=== PATIENT | male | born 2000 | race Caucasian/White ===

== ENCOUNTER 2024-06-06 14:19 | Emergency (ER) | payer OTHER ==
[2024-06-06] MEDS: Lidocaine 1% with EPINEPHrine 1:100,000 20 ML MDV SUBCUT ONE (15:38)
== END 2024-06-06 15:50 | disposition home or self-care (01) ==
LOC: FB.ED 14:19
DX: S06.0X0A Concussion without loss of consciousness, initial encounter (principal); S01.01XA Laceration without foreign body of scalp, initial encounter; F17.210 Nicotine dependence, cigarettes, uncomplicated; W01.0XXA Fall on same level from slipping, tripping and stumbling without subsequent striking against object, initial encounter
CPT/HCPCS: 12002; 70450; 99283

== ENCOUNTER 2025-06-07 17:45 | Emergency (ER) | payer SELFPAY ==
[2025-06-07] MEDS: SUMAtriptan 6 MG/0.5 ML SDV SUBCUT ONE (18:35)
[2025-06-07 18:41] LABS: BASOPHILS ABSOLUTE AUTO 0.1 x10-3/uL (0.0-0.3); BASOPHILS PERCENT AUTO 0.8 % (0.3-3.8); BLOOD UREA NITROGEN,BUN 10 mg/dL (7-18); CARBON DIOXIDE,CO2 27 mmol/L (21-32); CHLORIDE,CL 105 mmol/L (100-110); CREATININE 1.2 mg/dL (0.70-1.30); EOSINOPHILS ABSOLUTE AUTO 0.2 x10-3/uL (0.0-0.6); EOSINOPHILS PERCENT AUTO 2.7 % (0.1-6.8); ESTIMATED GFR 87 mL/min (>60); GLUCOSE RANDOM 96 mg/dL (80-116); LYMPHOCYTES ABSOLUTE AUTO 3.0 x10-3/uL (0.5-4.5); LYMPHOCYTES PERCENT AUTO 35.1 % (15.8-45.3); MEAN PLATELET VOLUME 8.5 fL (6.7-11.0); MONOCYTES ABSOLUTE AUTO 0.8 x10-3/uL (0.0-1.2); MONOCYTES PERCENT AUTO 9.1 % (5.5-15.2); NEUTROPHILS ABSOLUTE AUTO 4.5 x10-3/uL (1.7-6.9); NEUTROPHILS PERCENT AUTO 52.3 % (40.3-71.8); PLATELET COUNT,PLT 242 x10(3)uL (117-477); POTASSIUM,K 3.5 mmol/L (3.5-5.3); RED BLOOD CELL COUNT 5.32 x10(6)uL (3.90-5.90); RED CELL DISTRIBUTION WIDTH 13.4 % (12.4-15.0); SODIUM,NA 141 mmol/L (135-145); WHITE BLOOD CELL COUNT,WBC 8.7 x10-3/uL (3.2-10.1)
[2025-06-07 18:47] LABS: A/G RATIO 1.5; ALANINE AMINOTRANSFERASE,ALT 25 U/L (12-36); ASPARTATE AMNIOTRANSFERASE,AST 21 IU/L (5-25); BILIRUBIN TOTAL 1.1 mg/dL (0.1-1.3); PROTEIN TOTAL,TP 6.6 g/dL (6.0-8.0)
== END 2025-06-07 20:50 | disposition home or self-care (01) ==
LOC: FB.ED 17:45
DX: R51.9 Headache, unspecified (principal); F17.210 Nicotine dependence, cigarettes, uncomplicated
CPT/HCPCS: 36415; 80053; 83735; 84484; 85025; 86140; 93005; 96372; 99285; A9270; J3030